=== PATIENT | female | born 1980 | race Caucasian/White ===

== ENCOUNTER 2020-05-03 18:10 | Emergency (ER) | payer MEDICAID ==
[~2020-05-03] VITALS: Ht 175.3 cm; Wt 93.0 kg
--- NOTE | 2020-05-03 18:14 | NUR ---
CALLED TO TRIAGE NO ANSWER.
--- NOTE | 2020-05-03 18:25 | NUR ---
BIB FAMILY C/O L ANKLE INJURY S/P TRIP AND FALL. VS CHECKED. HOOKEN ON MONITOR. AWAITING MD PAT
[2020-05-03] MEDS ORDERED: HYDROCODONE/APAP 10/325MG TABLET ONE (18:35)
[2020-05-03] MEDS ORDERED: ONDANSETRON HCL/PF 4 MG/2 ML VIAL ONE (18:49)
[2020-05-03] MEDS ORDERED: MORPHINE SULFATE INJ 4 MG/ML DISP.SYRIN ONE (18:50)
[2020-05-03] MEDS ORDERED: PROPOFOL 20 ML IV ONE (18:50)
[2020-05-03] MEDS ORDERED: PROPOFOL 200 MG/20 ML VIAL IV ONE ×2 (19:00→19:30)
[2020-05-03] MEDS ORDERED: ONDANSETRON HCL/PF 4 MG/2 ML VIAL IV ONE (19:00)
[2020-05-03] MEDS ORDERED: HYDROCODONE/APAP 10/325MG TABLET PO ONE (19:00)
[2020-05-03] MEDS ORDERED: MORPHINE SULFATE INJ 2 MG/ML DISP.SYRIN IV ONE (19:00)
--- NOTE | 2020-05-03 19:29 | NUR ---
S/P L ANKLE CLOSED REDUCTION UNDER MODERATE SEDATION BY DR. MARRUFO. PT IS NOW AWAKE, ALERT AND ORIENTED. RESPONSIVE TO VERBAL AND TACTILE STIMULI.,
--- NOTE | 2020-05-03 20:40 | NUR ---
pt awake and alert. breathing evenly. no sob. nad. s/p sedation w/ no a/r or complications. pt was provided w/ a pair of crutches w/ instructions on ho w to use them w/ understanding and demonstrations.
--- NOTE | 2020-05-03 21:24 | NUR ---
pt is medically stable for d/c. IV removed. Catheter intact and site benign. Pressure and 4x4 applied to site. No bleeding noted.Patient discharged to home in stable condition. Rx and Written and verbal after care instructions given. Patient verbalizes understanding of instruction.
[2020-05-03 23:46] VITALS: BP 115/62
== END 2020-05-03 19:50 | disposition home or self-care (01) ==
LOC: ER 18:13
DX: S82.852A Displaced trimalleolar fracture of left lower leg, initial encounter for closed fracture (principal); Z88.8 Allergy status to other drugs, medicaments and biological substances; W01.0XXA Fall on same level from slipping, tripping and stumbling without subsequent striking against object, initial encounter; Y93.89 Activity, other specified; Y92.89 Other specified places as the place of occurrence of the external cause; Y99.8 Other external cause status
CPT/HCPCS: 27818; 73590; 73600; 73610; 96374; 96375; 99284; J2270; J2405; J2704

== ENCOUNTER 2022-08-30 22:52 | Emergency (ER) | payer OTHER ==
[~2022-08-30] VITALS: Ht 175.3 cm; Wt 99.8 kg
--- NOTE | 2022-08-30 23:47 | NUR ---
US TECH AT BED SIDE
[2022-08-31] MEDS ORDERED: ONDANSETRON HCL/PF 4 MG/2 ML VIAL IVP ONE
[2022-08-31] MEDS ORDERED: IV NS 0.9% 500 ML BAG IV ONE
[2022-08-31] MEDS ORDERED: KETOROLAC TROMETHAMINE INJ 30 MG/ML VIAL IV ONE
[2022-08-31 00:49] LABS: BASOPHILS # (AUTO) 0.1 K/uL (0.0-0.2); BASOPHILS % (AUTO) 0.8 % (0.0-2.0); EOSINOPHILS % (AUTO) 3.1 % (0.0-6.0); HEMATOCRIT 37 % (33-45); HEMOGLOBIN 12.5 g/dL (11.5-14.8); LYMPHOCYTES # (AUTO) 2.7 K/uL (0.8-4.8); LYMPHOCYTES % (AUTO) 36.8 % (20.0-44.0); MEAN CORPUSCULAR HGB CONC 33 g/dl (31.0-36.0); MEAN CORPUSCULAR VOLUME 90 fL (82-100); MONOCYTES # (AUTO) 0.4 K/uL (0.1-1.30); MONOCYTES % (AUTO) 5.7 % (2.0-12.0); NEUTROPHILS # (AUTO) 3.9 K/uL (1.8-8.9); NEUTROPHILS % (AUTO) 53.6 % (43.0-81.0); PLATELET COUNT (AUTO) 249 K/uL (150-450); RED BLOOD CELL COUNT(AUTO) 4.18 MIL/uL (4.0-5.2); WHITE BLOOD COUNT (AUTO) 7.3 K/uL (4.3-11.0)
[2022-08-31] MEDS ORDERED: ONDANSETRON HCL/PF 4 MG/2 ML VIAL ONE (00:53)
[2022-08-31] MEDS ORDERED: KETOROLAC TROMETHAMINE 15 MG/ML VIAL ONE (00:54)
[2022-08-31 01:01] LABS: CALCIUM, SERUM 9.4 mg/dL (8.5-10.1); CREATININE 0.7 mg/dL (0.6-1.3); POTASSIUM 3.8 mmol/L (3.5-5.1)
[2022-08-31 01:02] LABS: BILIRUBIN,URINE NEGATIVE (NEGATIVE); COLOR,URINE OTHER (YELLOW); LEUKOCYTE ESTERASE ,URINE NEGATIVE (NEGATIVE); NITRITE, URINE NEGATIVE (NEGATIVE); PROTEIN,URINE NEGATIVE (NEGATIVE); UGLUCOSE NEGATIVE (NEGATIVE); UROBILINOGEN,URINE 0.2 EU/dL (0.2)
[2022-08-31 01:06] LABS: ALBUMIN 3.8 g/dL (3.4-5.0); BILIRUBIN,DIRECT 0.1 mg/dL (0.0-0.2); BILIRUBIN,TOTAL 0.2 mg/dL (0.2-1.0); TOTAL PROTEIN, SERUM 7.2 g/dL (6.4-8.2)
[2022-08-31 01:15] LABS: BACTERIA,URINE Few /HPF (None Seen); SQUAMOUS EPITHELIAL CELL,UR Moderate /HPF (None Seen); WBC,URINE 0-2 /HPF (0-3)
[2022-08-31 02:58] VITALS: BP 116/79
--- NOTE | 2022-08-31 02:58 | NUR ---
IV removed. Catheter intact and site benign. Pressure and 4x4 applied to site. No bleeding noted.Patient discharged to home in stable condition. Written and verbal after care instructions given. Patient verbalizes understanding of instruction.
== END 2022-08-31 02:58 | disposition home or self-care (01) ==
LOC: ER 22:52
DX: R10.31 Right lower quadrant pain (principal); Z98.890 Other specified postprocedural states; Z88.8 Allergy status to other drugs, medicaments and biological substances
CPT/HCPCS: 99285; 74176; 76856; 36415; 96374; 96361; 96375; 85025; 80048; 80076; 81001; 85730; 84702; J2405; J7040; J1885